=== PATIENT | female | born 1995 | race Caucasian/White ===

== ENCOUNTER 2016-05-13 08:45 | Emergency (ER) | payer MEDICAID ==
[~2016-05-13] VITALS: Ht 170.2 cm; Wt 102.1 kg
[2016-05-13 08:47] VITALS: BP 144/77
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
--- NOTE | 2016-05-13 09:00 | NUR ---
Dr. Andujar at bedside
[2016-05-13] MEDS ORDERED: KETOROLAC 60 MG/2 ML VIAL IM ONE (09:05)
[2016-05-13] MEDS ORDERED: HYDROcodone/APAP 5/325 MG 1 TAB TAB PO ONE (09:05)
[2016-05-13] MEDS ORDERED: IBUPROFEN 600 MG TAB PO ONE (09:15)
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
--- NOTE | 2016-05-13 09:17 | NUR ---
patient transported to x-ray via gurney with x-ray tech
--- NOTE | 2016-05-13 09:34 | NUR ---
Patient retured from x-ray via gurrosalinda, patient is now resting in bed, both side rails up, states pain has gotten better since she was medicated with the NORCO.
[2016-05-13 10:24] VITALS: BP 123/64
--- NOTE | 2016-05-13 10:25 | NUR ---
Patient discharged with v/s stable. Written and verbal after care instructions given and explained. Patient alert, oriented and verbalized understanding of instructions. Ambulatory with to car. All questions addressed prior to discharge. ID band removed. Patient advised to follow up with PMD. Rx of NORCO and Naprosyn given. Patient educated on indication of medication including possible reaction and side effects. Opportunity to ask questions provided and answered. Addendum: 05/13/16 at 1034 by MYNOR Patients pain was reduced to 3/10, patient states she feels better.
== END 2016-05-13 10:25 | disposition home or self-care (01) ==
LOC: MED 08:45
DX: S16.1XXA Strain of muscle, fascia and tendon at neck level, initial encounter (principal); S00.83XA Contusion of other part of head, initial encounter; S20.212A Contusion of left front wall of thorax, initial encounter; S30.1XXA Contusion of abdominal wall, initial encounter; R03.0 Elevated blood-pressure reading, without diagnosis of hypertension; Z72.0 Tobacco use; V89.2XXA Person injured in unspecified motor-vehicle accident, traffic, initial encounter; Y93.89 Activity, other specified; Y92.89 Other specified places as the place of occurrence of the external cause; Y99.8 Other external cause status
CPT/HCPCS: 71010; 72040; 99284; Q0092